=== PATIENT | female | born 1975 | race Caucasian/White ===

== ENCOUNTER 2018-06-06 20:54 | Emergency (ER) | payer SELFPAY ==
--- OUTSIDE RECORDS SUMMARY | 2018-06-06 20:56 | XMS REPORT | Clinical Summary ---
Author Author [facility] Address Unknown Phone Unavailable Care Team Providers Care Automobile Repossessor Name Role Phone Larissa Daniel MD PCP Allergies Comments Active Allergy Reactions Severity Noted Date Codeine Itching 05/30/2017 Medications End Date Status Medication Sig Dispensed Refills Start Date Active ramipril (ALTACE) 10 MG Take 20 mg by 0 capsule mouth daily. Active cyclobenzaprine Take 0.5 20 tablet 0 (FLEXERIL) 10 mg tablet tablets (5 mg 7 total) by mouth 3 (three) times a day as needed for muscle spasms. Active ibuprofen (ADVIL,MOTRIN) Take 1 tablet 20 tablet 0 600 MG tablet (600 mg 7 total) by mouth every 6 (six) hours as needed for mild pain. Active amitriptyline (ELAVIL) 25 Take 25 mg by 0 MG tablet mouth 7 nightly. Active sertraline (ZOLOFT) 100 Take 200 mg 1 201 MG tablet by mouth 7 daily. Active lisinopril Take 10 mg by 1 (PRINIVIL,ZESTRIL) 10 mg mouth daily. 7 tablet 06/16/2018 Active gabapentin (NEURONTIN) Take 1 90 capsule 0 300 mg capsule capsule (300 8 mg total) by mouth 3 (three) times a day for 30 days. 07/06/2018 Active naproxen (NAPROSYN) 500 Take 1 tablet 30 tablet 0 MG tablet (500 mg 8 total) by mouth 2 (two) times a day as needed for mild pain or moderate pain for up to 30 days. 07/02/2017 Discontinued gabapentin (NEURONTIN) TAKE ONE 8 400 mg capsule CAPSULE BY 7 MOUTH 4 TIMES A DAY 07/17/2017 gabapentin (NEURONTIN) Take 1 60 capsule 0 400 mg capsule capsule (400 8 mg total) by mouth 4 (four) times a day for 15 days. 08/15/2017 gabapentin (NEURONTIN) Take 1 45 capsule 0 300 mg capsule capsule (300 8 mg total) by mouth 3 (three) times a day for 15 days. 10/25/2017 gabapentin (NEURONTIN) Take 1 28 capsule 0 400 mg capsule capsule (400 8 mg total) by mouth 4 (four) times a day for 7 days. 12/14/2017 naproxen (NAPROSYN) 500 Take 1 tablet 20 tablet 0 MG tablet (500 mg 8 total) by mouth 2 (two) times a day with meals for 10 days. 12/11/2017 traMADol (ULTRAM) 50 mg Take 1 tablet 15 tablet 0 tablet (50 mg total) 8 by mouth every 6 (six) hours as needed for severe pain for up to 15 doses. 05/17/2018 Discontinued gabapentin (NEURONTIN) Take 300 mg 0 300 mg capsule by mouth 4 (four) times a day. Active Problems Not on file Encounters Care Team Description Date Type Specialty Jasvir Arita MD Contusion of right knee, initial encounter (Primary Dx) 06/06/2018 Emergency Emergency Medicine Armin Ascencio, DO Neuropathy (Primary Dx); Medication refill 05/17/2018 Emergency Emergency Medicine Armin Ascencio, DO Acute pain of right knee (Primary Dx); Effusion of right knee 12/04/2017 Emergency Emergency Medicine Armin Ascencio, Encounter for medication refill (Primary Dx) 10/18/2017 Emergency Emergency Medicine Armin Ascencio, DO Neuropathy (Primary Dx) 07/31/2017 Emergency Emergency Medicine Armin Ascencio, DO Medication refill (Primary Dx) 07/02/2017 Emergency Emergency Medicine Jb Nelson MD Neck pain (Primary Dx); Essential hypertension 06/09/2017 Emergency Emergency Medicine after 06/05/2017 Social History Date Tobacco Use Types Packs/Day Years Used Current Every Day Smoker 1 20 Smokeless Tobacco: Never Used Tobacco Cessation: Ready to Quit: Yes; Counseling Given: Yes Alcohol Use Drinks/Week oz/Week Comments No Sex Assigned at Date Recorded Not on file Industry Job Start Date Occupation Not on file Not on file Not on file Travel End Travel History Travel Start No recent travel history available. Last Filed Vital Signs Time Taken Vital Sign Reading 06/06/2018 6:19 PM MEDIA REPORTER Blood Pressure 139/87 06/06/2018 6:19 PM MEDIA REPORTER Pulse 84 06/06/2018 6:19 PM MEDIA REPORTER Temperature 37.1 C (98.8 F) 06/06/2018 6:19 PM MEDIA REPORTER Respiratory Rate 16 06/06/2018 6:19 PM MEDIA REPORTER Oxygen Saturation 98% - Inhaled Oxygen - Concentration 06/06/2018 6:16 PM MEDIA REPORTER Weight 72.6 kg (160 lb) 06/06/2018 6:16 PM MEDIA REPORTER Height 167.6 cm (5' 6") 06/06/2018 6:16 PM MEDIA REPORTER Body Mass Index 25.82 Plan of Treatment Health Maintenance Due Date Last Done Comments CERVICAL CANCER SCREENING 1998 INFLUENZA VACCINE 01/09/2018 Procedures Comments Procedure Name Priority Date/Time Associated Diagnosis XR KNEE 4+ VW RIGHT STAT 06/06/2018 7:10 PM MEDIA REPORTER XR KNEE 4+ VW RIGHT STAT 12/04/2017 3:58 PM CDT HCG QUALITATIVE, URINE Routine 07/02/2017 SCREEN 5:27 PM MEDIA REPORTER [place] INJECT TRIGGER POINT, Routine 06/11/2017 1 OR 2 6:44 PM MEDIA REPORTER after 06/05/2017 Results * XR Knee 4+ Vw Right (06/06/2018 7:10 PM MEDIA REPORTER) Only the most recent of 2 results within the time period is included. Narrative Performed At PROCEDURE:XR KNEE 4VW RIGHT [facility] CLINICAL HISTORY:table fell on r knee COMPARISON:None. TECHNIQUE: Right knee,THREE views were obtained. FINDINGS: No fracture, dislocation, bone destruction, or periosteal reaction is demonstrated of the bones about the knee. There is a bony density seen adjacent to the patella which may represent an unfused ossification center versus prior trauma. If the patient's symptoms persist or deteriorate, a follow-up radiograph in 10 days time is recommended, if clinically indicated. IMPRESSION: 1. No acute fracture or subluxation. [facility]-[id number] Procedure Note Interface, Radiology Results Incoming - 06/06/2018 7:16 PM MEDIA REPORTER PROCEDURE: XR KNEE 4 VW RIGHT CLINICAL HISTORY: table fell on r knee COMPARISON: None. TECHNIQUE: Right knee, THREE views were obtained. FINDINGS: No fracture, dislocation, bone destruction, or periosteal reaction is demonstrated of the bones about the knee. There is a bony density seen adjacent to the patella which may represent an unfused ossification center versus prior trauma. If the patient's symptoms persist or deteriorate, a follow-up radiograph in 10 days time is recommended, if clinically indicated. IMPRESSION: 1. No acute fracture or subluxation. [facility]-[id number] Performing Organization Address City/State/Zipcode Phone Number [facility] [address] [place] [address] * hCG qualitative, urine screen (07/02/2017 5:27 PM MEDIA REPORTER) hCG qualitative, urine Negative Negative [facility] Comment: PATHOLOGY AND The manufacturers stated GENOMIC MEDICINE sensitivity of HcG test for serum is >/=10 mIU/ml and urine is >/=20mIU/ml. Specimen Urine Performing Organization Address City/State/Zipcode Phone Number [facility] [address] [place] [address] PATHOLOGY AND GENOMIC MEDICINE * DIGITAL BLOCK (06/11/2017 6:44 PM MEDIA REPORTER) Narrative Performed At Michele Nelson MD 06/11/20176:44 PM Digital Block/Trigger Injections Performed by: MICHELE NELSON Authorized by: MICHELE NELSON Consent: Consent obtained:Verbal Consent given by:Patient Risks discussed:Infection, pain, nerve damage, swelling, intravascular injection and bleeding Location: Therapuetic Trigger Point Injection:1 Block location: left paraspinal. Pre-procedure details: Neurovascular status: intact Skin preparation:Alcohol Procedure details (see MAR for exact dosages): Syringe type:Luer lock syringe Needle gauge:25 G Anesthetic injected:Lidocaine 1% w/o epi Technique:Three-sided block Injection procedure:Incremental injection, negative aspiration for blood, anatomic landmarks palpated, introduced needle and anatomic landmarks identified Post-procedure details: Outcome:Pain improved Patient tolerance of procedure:Tolerated well, no immediate complications after 06/05/2017 Advance Directives Patient has advance care planning documents on file. For more information, [facility] [place] contact: Sami Sebastian [address] [place] [address]
--- OUTSIDE RECORDS SUMMARY | 2018-06-06 20:56 | XMS REPORT | Continuity of Care Document ---
Author Author Naomy tammie [facility] Address Unknown Phone Unavailable Problems Problem Status Onset Date Classification Date Reported Comments Source Discharge Diagnosis: Cellulitis of right thumb 10/27/2016 10/30/2016 [facility] SWOLLEN THUMB, OTHER Active 10/27/2016 [facility] Discharge Diagnosis: Mouth pain 10/19/2016 10/22/2016 [facility] SENT: REACTION TO MEDICATION Active 10/19/2016 [facility] Hypercholesteremia Resolved Problem 04/27/2017 [facility] Hypertension Resolved Problem 04/27/2017 [facility] Depression Resolved Problem 04/27/2017 [facility] Obesity Active Problem 04/27/2017 [facility] Medications Medication Details Route Status Patient Instructions Ordering Provider Order Date Source tramadol hydrochloride 50 MG Oral Tablet 50 mg=1 tab, PO, Q6H, PRN Pain, X 5 day, # 20 tab, 0 Refill(s) Active 10/27/2016 [facility] Cephalexin 500 MG Oral Capsule [Keflex] 500 mg=1 cap, PO, QID, X 10 day, # 40 cap, 0 Refill(s) Active 10/27/2016 [facility] Sulfamethoxazole 800 MG / Trimethoprim 160 MG Oral Tablet [Bactrim] 1 tab, PO, BID, X 10 day, # 20 tab, 0 Refill(s) Active 10/27/2016 [facility] Acetaminophen 325 MG / Hydrocodone Bitartrate 5 MG Oral Tablet [[place] 5/325] 1 tab, Route: PO, Drug Form: TAB, Dosing Weight 81.818, kg, ONCE, STAT, Start date: 10/27/16 14:31:00 CDT, Stop date: 10/27/16 14:31:00 CDTNotes: (Same as: [place] 325/5) Do not exceed 4gm/day of acetaminophen. Inactive 10/27/2016 [facility] Motrin 800 mg, 1 tab, Route: PO, Drug form: TAB, ONCE, Dosing Weight 81.818, kg, Priority: STAT, Start date: 10/27/16 14:31:00 CDT, Stop date: 10/27/16 14:31:00 CDTNotes: (Same as: Motrin) "Do Not Crush" Take with food. Inactive 10/27/2016 [facility] tramadol hydrochloride 50 MG Oral Tablet 50 mg=1 tab, PO, Q6H, PRN Pain, X 3 day, # 12 tab, 0 Refill(s) Active 10/19/2016 [facility] Sodium Chloride 0.154 MEQ/ML Injectable Solution 1,000 mL, 1000 ml/hr, Infuse Over: 1 hr, Route: IV, 1,000, Drug form: INJ, ONCE, Priority: STAT, Dosing Weight 81.534 kg, Start date: 10/19/16 11:39:00 CDT, Duration: 1 doses or times, Stop date: 10/19/16 11:39:00 CDT Inactive 10/19/2016 [facility] Ketorolac 15 mg, 0.5 mL, Route: IVP, Drug form: INJ, ONCE, Dosing Weight 81.534, kg, Priority: STAT, Start date: 10/19/16 11:38:00 CDT, Stop date: 10/19/16 11:38:00 CDTNotes: (Same as:Toradol) IV bolus must be given >15 seconds. Give IM administration slowly and deeply into the muscle. Not for use > 4 days MEDICATION WASTE Product Size: 30 mg Product Wasted: ___ mg Inactive 10/19/2016 [facility] Dexamethasone 10 mg, 1 mL, Route: IVP, Drug form: SOLN, ONCE, Dosing Weight 81.534, kg, Priority: STAT, Start date: 10/19/16 11:38:00 CDT, Stop date: 10/19/16 11:38:00 CDTNotes: dexamethasone 10 mg/1 ml VL INJ PF MEDICATION WASTE Product Size: 10 mg Product Wasted: ___ mg Inactive 10/19/2016 [facility] Benadryl 50 mg, 1 mL, Route: IVP, Drug form: INJ, ONCE, Dosing Weight 81.534, kg, Priority: STAT, Start date: 10/19/16 11:38:00 CDT, Stop date: 10/19/16 11:38:00 CDTNotes: (Same as: Benadryl) Inactive 10/19/2016 [facility] Allergies, Adverse Reactions, Alerts Substance Category Reaction Severity Reaction type Status Date Reported Comments Source Codeine Sulfate Assertion Drug allergy Active Medical [facility] Immunizations Immunization Date Given Site Status Last Updated Comments Source influenza virus vaccine, inactivated 03/08/2017 Right Deltoid completed Phan [facility] influenza virus vaccine, inactivated<sup>2</sup> 08/16/2016 Left Deltoid completed Chance Result Comment: [facility] #[id number], LOT #[id number], EXP. 12/08/2016 [facility] influenza virus vaccine, inactivated<sup>1</sup> 08/16/2016 Left Deltoid completed Chance Result Comment: [facility] #[id number], LOT #[id number], EXP. 12/08/2016 [facility] diphtheria/pertussis, acel/tetanus adult<sup>1</sup> 08/16/2016 Right Deltoid completed Chance Result Comment: [facility] #[id number], LOT #[id number], EXP. 10/19/2018 [facility] diphtheria/pertussis, acel/tetanus adult<sup>2</sup> 08/16/2016 Right Deltoid completed Chance Result Comment: [facility] #[id number], LOT #[id number], EXP. 10/19/2018 [facility] Results Order Name Results Value Reference Range Date Interpretation Comments Source Hand 3 views DX Hand 3 views DX Right Hand Clinical Indication: - thumb pain/redness Comparison: None FINDINGS: The AP, oblique, and lateral views of the hand show normal alignment without fractures or dislocations. The digit and thumb interphalangeal joints are unremarkable. The metacarpophalangeal joints are unremarkable. The carpometacarpal joint regions are unremarkable. There is no soft tissue swelling or radiopaque foreign bodies. The visualized wrist region is grossly unremarkable. If there is further concern, recommend follow-up radiographs or bone scan for complete assessment. IMPRESSION: No fractures or dislocation of the right hand. SL: JULY 10/27/2016 - - Read by: Glenn Del Toro MD Dictated Date/time: 10/27/16 15:05 Electronically Signed by: Glenn Del Toro MD 10/27/16 15:07 FINAL REPORT [facility] ELECTROLYTES AGAP 13.2 meq/L 10.0 - 20.0 10/19/2016 [facility] ELECTROLYTES eGFR 104 mL/min/1.73m2 10/19/2016 Result Comment: The eGFR is calculated using the CKD-EPI formula. In most young, healthy individuals the eGFR will be >90 mL/min/1.73m2. The eGFR declines with age. An eGFR of 60-89 may be normal in some populations, particularly the elderly, for whom the CKD-EPI formula has not been extensively validated. Use of the eGFR is not recommended in the following populations: Individuals with unstable creatinine concentrations, including patients and those with serious co-morbid conditions. Patients with extremes in muscle mass or diet. The data above are obtained from the National Kidney Disease Education Program (NKDEP) which additionally recommends that when the eGFR is used in patients with extremes of body mass index for purposes of drug dosing, the eGFR should be multiplied by the estimated BMI. [facility] ELECTROLYTES Creatinine Lvl 0.73 mg/dL 0.50 - 1.40 10/19/2016 [facility] ELECTROLYTES Sodium Lvl 140 meq/L 135 - 145 10/19/2016 [facility] ELECTROLYTES Glucose Lvl 88 mg/dL 70 - 99 10/19/2016 [facility] ELECTROLYTES BUN 8 mg/dL 7 - 22 10/19/2016 [facility] ELECTROLYTES Calcium Lvl 9.1 mg/dL 8.5 - 10.5 10/19/2016 [facility] ELECTROLYTES CO2 25 meq/L 24 - 32 10/19/2016 [facility] ELECTROLYTES Chloride Lvl 106 meq/L 95 - 109 10/19/2016 [facility] ELECTROLYTES Potassium Lvl 4.2 meq/L 3.5 - 5.1 10/19/2016 [facility] HEMATOLOGY Segs-Bands # 6.9 K/CMM 1.5 - 8.1 10/19/2016 [facility] HEMATOLOGY Eosinophils # 0.1 K/CMM 0.0 - 0.5 10/19/2016 [facility] HEMATOLOGY Basophils # 0.1 K/CMM 0.0 - 0.2 10/19/2016 [facility] HEMATOLOGY Lymphocytes # 2.5 K/CMM 1.0 - 5.5 10/19/2016 [facility] HEMATOLOGY Monocytes # 0.8 K/CMM 0.0 - 0.8 10/19/2016 [facility] HEMATOLOGY Lymphocytes 24.2 % 20.0 - 40.0 10/19/2016 [facility] HEMATOLOGY Basophils 1.0 % 0.0 - 1.0 10/19/2016 [facility] HEMATOLOGY Monocytes 7.3 % 2.0 - 12.0 10/19/2016 [facility] HEMATOLOGY Eosinophils 1.0 % 0.0 - 4.0 10/19/2016 [facility] HEMATOLOGY Segs 66.5 % 45.0 - 75.0 10/19/2016 [facility] HEMATOLOGY Platelet 381 K/CMM 133 - 450 10/19/2016 [facility] HEMATOLOGY MPV 8.3 fL 7.4 - 10.4 10/19/2016 [facility] MCH 30.9 pg 27.0 - 31.0 10/19/2016 [facility] HEMATOLOGY Hct 43.6 % 36.0 - 48.0 10/19/2016 [facility] HEMATOLOGY Hgb 14.7 g/dL 12.0 - 16.0 10/19/2016 [facility] HEMATOLOGY RDW 14.7 % 11.5 - 14.5 10/19/2016 [facility] HEMATOLOGY MCHC 33.8 g/dL 32.0 - 36.0 10/19/2016 [facility] HEMATOLOGY MCV 91.3 fL 80.0 - 98.0 10/19/2016 [facility] HEMATOLOGY RBC 4.78 M/CMM 4.20 - 5.40 10/19/2016 [facility] HEMATOLOGY WBC 10.4 K/CMM 3.7 - 10.4 10/19/2016 [facility] URINE AND STOOL UA Urobilinogen <=1.0 mg/dL 0.1 - 1.0 10/19/2016 [facility] URINE AND STOOL UA WBC null 0 - 5 10/19/2016 [facility] URINE AND STOOL UA Sq Epi Few /LPF Few /LPF 10/19/2016 [facility] URINE AND STOOL UA Mucus Few /LPF None Seen /LPF 10/19/2016 [facility] URINE AND STOOL UA RBC 1 /HPF 0 - 2 10/19/2016 [place] URINE AND STOOL UA Bacteria Occasional /HPF None Seen /HPF 10/19/2016 [place] URINE AND STOOL UA Leuk Est Negative (10/19/16 11:07 AM) Negative 10/19/2016 [place] URINE AND STOOL UA Nitrite Negative (10/19/16 11:07 AM) Negative 10/19/2016 [place] URINE AND STOOL UA Bili Negative *NA* (10/19/16 11:07 AM) Negative 10/19/2016 [place] URINE AND STOOL UA Blood Negative (10/19/16 11:07 AM) Negative 10/19/2016 [place] URINE AND STOOL UA Spec Grav 1.006 <=1.030 10/19/2016 [place] URINE AND STOOL UA pH 7.5 5.0 - 8.0 10/19/2016 [place] URINE AND STOOL UA Ketones Negative mg/dL Negative mg/dL 10/19/2016 [place] URINE AND STOOL UA Protein Negative mg/dL Negative mg/dL 10/19/2016 [place] URINE AND STOOL UA Glucose Negative mg/dL Negative mg/dL 10/19/2016 [place] URINE AND STOOL UA Turbidity Clear (10/19/16 11:07 AM) Clear 10/19/2016 [place] URINE AND STOOL UA Color Yellow *NA* (10/19/16 11:07 AM) Yellow 10/19/2016 [place] URINE CHEM U Preg Negative (10/19/16 11:07 AM) Negative 10/19/2016 [place] Vital Signs Vital Sign Value Date Comments Source Systolic (mm Hg) 110 10/27/2016 [place] Diastolic (mm Hg) 75 10/27/2016 [place] Respitory Rate 18 10/27/2016 [place] Heart Rate 81 10/27/2016 [place] BMI Calculated 30.02 10/27/2016 [place] Weight 81.818 10/27/2016 [place] Height 165.1 cm 10/27/2016 [place] Heart Rate 87 10/27/2016 [place] Respitory Rate 18 10/27/2016 [place] Systolic (mm Hg) 111 10/27/2016 [place] Diastolic (mm Hg) 72 10/27/2016 [facility] Systolic (mm Hg) 159 10/19/2016 [place] Diastolic (mm Hg) 97 10/19/2016 [place] Systolic (mm Hg) 158 10/19/2016 [place] Diastolic (mm Hg) 110 10/19/2016 [place] Systolic (mm Hg) 163 10/19/2016 [place] Diastolic (mm Hg) 104 10/19/2016 [place] Respitory Rate 22 10/19/2016 [place] Heart Rate 100 10/19/2016 [place] Respitory Rate 22 10/19/2016 [place] BMI Calculated 29.01 10/19/2016 [facility] Weight 81.534 10/19/2016 [place] Height 167.64 cm 10/19/2016 [facility] Encounters Location Location Details Encounter Type Encounter Number Reason For Visit Attending Provider ADM Date DC Date Status Source Outpatient [id number] SAUL LUNDBERG 08/16/2016 [facility] Outpatient [id number] JU DIAZ 08/22/2016 [facility] Outpatient [id number] SAUL LUNDBERG 10/12/2016 [facility] Outpatient [id number] SAUL LUNDBERG 10/19/2016 [facility] Emergency [id number] Ashtyn Rodrigez 10/19/2016 10/19/2016 [facility] Emergency [id number] Ashtyn Rodrigez 10/27/2016 10/27/2016 [facility] Outpatient [id number] JU DIAZ 03/07/2017 [facility] Outpatient [id number] SAUL LUNDBERG 03/08/[address] [facility] [place] 101 Phone Message [id number] 04/23/2017 04/25/2017 [facility] Procedures Procedure Code Date Perfomer Comments Source Appendectomy [id number] 06/11/2014 [facility] Gallbladder excision [id number] 06/11/2014 [facility] Appendectomy [id number] 06/11/2014 [facility] Gallbladder excision [id number] 06/11/2014 [facility] section [id number] 06/11/2007 [facility] section [id number] 06/11/2007 [facility]
--- OUTSIDE RECORDS SUMMARY | 2018-06-06 20:57 | XMS REPORT | Summary of Care ---
Author Author [facility] [place] [address] Organization [facility] [place] [address] Address Unknown Phone Unavailable Encounter HQ Syedntr_hillary(FIN) [id number] Date(s): 04/23/17 - 04/24/17 [facility] Care [place] [address] [address], [address] [place] [phone] Vital Signs No data available for this section Problem List Condition Effective Dates Status Health Status Informant Hypercholesteremia(C Resolved onfirmed) Hypertension(Confirm Resolved ed) Depression(Confirmed Resolved ) Obesity(Confirmed) Active Allergies, Adverse Reactions, Alerts Substance Reaction Severity Status Codeine Sulfate Active Medications No data available for this section Results No data available for this section Immunizations Given and Recorded Vaccine Date Status Refusal Reason influenza virus vaccine, inactivated 03/08/17 Given influenza virus vaccine, inactivated1 08/16/16 Given diphtheria/pertussis, acel/tetanus adult2 08/16/16 Given 1Result Comment: [facility] #[id number], LOT #[id number], EXP. 12/08/2016 2Result Comment: [facility] #[id number], LOT #[id number], EXP. 10/19/2018 Procedures Procedure Date Related Diagnosis Body Site Appendectomy 2015 Gallbladder excision 2014 section 2007 Social History Social History Type Response Smoking Status Former smoker; Type: Cigarettes; Lives with someone who smokes; Cigarette Smoking Last 365 Days Yes; Reg Smoking Cessation Counseling No; Tobacco use per day: 15; Assessment and Plan No data available for this section
--- OUTSIDE RECORDS SUMMARY | 2018-06-06 20:57 | XMS REPORT | Summary of Care ---
Author Author [facility] Organization [facility] Address Unknown Phone Unavailable Encounter JAMAR Correia(JASSI) [id number] Date(s): 10/19/16 - 10/19/16 [facility] [address] [place] [address]- Discharge Diagnosis: Mouth pain Discharge Disposition: Home or Self Care Attending Physician: Ashtyn Rodrigez MD Vital Signs 1 2 3 Most recent to oldest [Reference Range]: 167.64 cm (10/19/16 8:57 AM) Height 159/97 mmHg *HI* (10/19/16 12:30 PM) 158/110 mmHg *HI* (10/19/16 12:00 PM) 163/104 mmHg *HI* (10/19/16 11:30 AM) Blood Pressure [90-140/60-90 mmHg] 22 BRMIN *HI* (10/19/16 11:10 AM) 22 BRMIN *HI* (10/19/16 8:57 AM) Respiratory Rate [14-20 BRMIN] 100 bpm (10/19/16 8:57 AM) Peripheral Pulse Rate [60-100 bpm] 81.534 kg (10/19/16 8:57 AM) Weight 29.01 m2 (10/19/16 8:57 AM) Body Mass Index Problem List Condition Effective Dates Status Health Status Informant Hypercholesteremia(C Resolved onfirmed) Hypertension(Confirm Resolved ed) Depression(Confirmed Resolved ) Obesity(Confirmed) Active Allergies, Adverse Reactions, Alerts Substance Reaction Severity Status Codeine Sulfate Active Medications Benadryl 50 mg, 1 mL, Route: IVP, Drug form: INJ, ONCE, Dosing Weight 81.534, kg, Priorit y: STAT, Start date: 10/19/16 11:38:00 CDT, Stop date: 10/19/16 11:38:00 CDT Notes: (Same as: Benadryl) Start Date: 10/19/16 Stop Date: 10/19/16 Status: Completed dexamethasone 10 mg, 1 mL, Route: IVP, Drug form: SOLN, ONCE, Dosing Weight 81.534, kg, Priori ty: STAT, Start date: 10/19/16 11:38:00 CDT, Stop date: 10/19/16 11:38:00 CDT Notes: dexamethasone 10 mg/1 ml VL INJ PF MEDICATION WASTE Product Size: 10 mgProduct Wasted: ___ mg Start Date: 10/19/16 Stop Date: 10/19/16 Status: Completed ketOROLAC 15 mg, 0.5 mL, Route: IVP, Drug form: INJ, ONCE, Dosing Weight 81.534, kg, Prior ity: STAT, Start date: 10/19/16 11:38:00 CDT, Stop date: 10/19/16 11:38:00 CDT Notes: (Same as:Toradol) IV bolus must be given >15 seconds. Give IM administration slowly and deeply into the muscle.Not for use > 4 days MEDICATION WASTE Product Size: 30 mgProduct Wasted: ___ mg Start Date: 10/19/16 Stop Date: 10/19/16 Status: Completed Sodium Chloride 0.9% (Bolus) IV 1,000 mL, 1000 ml/hr, Infuse Over: 1 hr, Route: IV, 1,000, Drug form: INJ, ONCE, Priority: STAT, Dosing Weight 81.534 kg, Start date: 10/19/16 11:39:00 CDT, Dur ation: 1 doses or times, Stop date: 10/19/16 11:39:00 CDT Start Date: 10/19/16 Stop Date: 10/19/16 Status: Completed tramadol 50 mg oral tablet 50 mg=1 tab, PO, Q6H, PRN Pain, X 3 day, # 12 tab, 0 Refill(s) Start Date: 10/19/16 Stop Date: 10/22/16 Status: Ordered Results ELECTROLYTES Most recent to 1 oldest [Reference Range]: Sodium Lvl [135-145 140 mEq/L mEq/L] (10/19/1649 AM) Potassium Lvl 4.2 mEq/L [3.5-5.1 mEq/L] (10/19/16:49 AM) Chloride Lvl [95-109 106 mEq/L mEq/L] (10/19/1649 AM) CO2 [24-32 mEq/L] 25 mEq/L (10/19/1649 AM) AGAP [10.0-20.0 13.2 mEq/L mEq/L] (10/19/1649 AM) CHEM PANEL Most recent to 1 oldest [Reference Range]: Creatinine Lvl 0.73 mg/dL [0.50-1.40 mg/dL] (10/19/16:49 AM) eGFR 104 mL/min/1.73m2 1 *NA* (10/19/1649 AM) BUN [7-22 mg/dL] 8 mg/dL (10/19/1649 AM) Glucose Lvl [70-99 88 mg/dL mg/dL] (10/19/1649 AM) Calcium Lvl 9.1 mg/dL [8.5-10.5 mg/dL] (10/19/16:49 AM) 1Result Comment: The eGFR is calculated using the [...] from the National Kidney Disease Education Program ( NKDEP) which additionally recommends that when the eGFR is used in patients with extremes of body mass index for purposes of drug dosing, the eGFR should be mul tiplied by the estimated BMI. URINE CHEM Most recent to 1 oldest [Reference Range]: U Preg [Negative] Negative (10/19/16 11:07 AM) URINE AND STOOL Most recent to 1 oldest [Reference Range]: UA Turbidity [Clear] Clear (10/19/16 11:07 AM) UA Color [Yellow] Yellow *NA* (10/19/16 11:07 AM) UA pH [5.0-8.0] 7.5 (10/19/16 11:07 AM) UA Spec Grav 1.006 [<=1.030] (10/19/16 11:07 AM) UA Glucose [Negative Negative mg/dL mg/dL] *NA* (10/19/16 11:07 AM) UA Blood [Negative] Negative (10/19/16:07 AM) UA Ketones [Negative Negative mg/dL mg/dL] *NA* (10/19/16 11:07 AM) UA Protein [Negative Negative mg/dL mg/dL] (10/19/16 11:07 AM) UA Urobilinogen <=1.0 mg/dL [0.1-1.0 mg/dL] *NA* (10/19/16 11:07 AM) UA Bili [Negative] Negative *NA* (10/19/16 11:07 AM) UA Leuk Est Negative [Negative] (10/19/16:07 AM) UA Nitrite Negative [Negative] (10/19/16 11:07 AM) UA WBC [0-5 /HPF] <1 /HPF (10/19/16 11:07 AM) UA RBC [0-2 /HPF] 1 /HPF (10/19/16 11:07 AM) UA Bacteria [None Occasional /HPF Seen /HPF] *NA* (10/19/16 11:07 AM) UA Sq Epi [Few /LPF] Few /LPF *NA* (10/19/16 11:07 AM) UA Mucus [None Seen Few /LPF /LPF] *NA* (10/19/16 11:07 AM) HEMATOLOGY Most recent to 1 oldest [Reference Range]: WBC [3.7-10.4 K/CMM] 10.4 K/CMM (10/19/16 11:49 AM) RBC [4.20-5.40 4.78 M/CMM M/CMM] (10/19/16 11:49 AM) Hgb [12.0-16.0 g/dL] 14.7 g/dL (10/19/16 11:49 AM) Hct [36.0-48.0 %] 43.6 % (10/19/16 11:49 AM) MCV [80.0-98.0 fL] 91.3 fL (10/19/16 11:49 AM) MCH [27.0-31.0 pg] 30.9 pg (10/19/16 11:49 AM) MCHC [32.0-36.0 33.8 g/dL g/dL] (10/19/16 11:49 AM) RDW [11.5-14.5 %] 14.7 % *HI* (10/19/16 11:49 AM) Platelet [133-450 381 K/CMM K/CMM] (10/19/16 11:49 AM) MPV [7.4-10.4 fL] 8.3 fL (10/19/16 11:49 AM) Segs [45.0-75.0 %] 66.5 % (10/19/16 11:49 AM) Lymphocytes 24.2 % [20.0-40.0 %] (10/19/16 11:49 AM) Monocytes [2.0-12.0 7.3 % %] (10/19/16 11:49 AM) Eosinophils [0.0-4.0 1.0 % %] (10/19/16 11:49 AM) Basophils [0.0-1.0 1.0 % %] (10/19/16 11:49 AM) Segs-Bands # 6.9 K/CMM [1.5-8.1 K/CMM] (10/19/16 11:49 AM) Lymphocytes # 2.5 K/CMM [1.0-5.5 K/CMM] (10/19/16 11:49 AM) Monocytes # [0.0-0.8 0.8 K/CMM K/CMM] (10/19/16 11:49 AM) Eosinophils # 0.1 K/CMM [0.0-0.5 K/CMM] (10/19/16 11:49 AM) Basophils # [0.0-0.2 0.1 K/CMM K/CMM] (10/19/16 11:49 AM) Immunizations Given and Recorded Vaccine Date Status Refusal Reason diphtheria/pertussis, acel/tetanus adult1 08/16/16 Given influenza virus vaccine, inactivated2 08/16/16 Given 1Result Comment: [facility] #[id number], LOT #[id number], EXP. 10/19/2018 2Result Comment: [facility] #[id number], LOT #[id number], EXP. 12/08/2016 Procedures Procedure Date Related Diagnosis Body Site Appendectomy 2014 Gallbladder excision 2014 section 2007 Social History Social History Type Response Smoking Status Current every day smoker; Type: Cigarettes; Tobacco use per day: 15; Lives with someone who smokes; Cigarette Smoking Last 365 Days Yes; Reg Smoking Cessation Counseling No Assessment and Plan No data available for this section
--- OUTSIDE RECORDS SUMMARY | 2018-06-06 20:57 | XMS REPORT ---
Author Author [facility] Address Unknown Phone Unavailable Care Team Providers Care Hotel Reservationist Name Role Phone Unavailable Unavailable Payers Payer Name Policy Type Policy Number Effective Date Expiration Date Problems This patient has no known problems. Allergies, Adverse Reactions, Alerts Allergy Name Allergy Type Status Severity Reaction(s) Onset Date Inactive Date Treating Clinician Comments codeine DA Active U 2018-06-05 00:00:00 codeine DA Active U 2017-07-10 00:00:00 Medications This patient has no known medications.
--- OUTSIDE RECORDS SUMMARY | 2018-06-06 20:57 | XMS REPORT | Summary of Care ---
Author Author [facility] Organization [facility] Address Unknown Phone Unavailable Encounter JAMAR Correia(JASSI) [id number] Date(s): 10/27/16 - 10/27/16 [facility] [address] [place] [address]- Discharge Diagnosis: Cellulitis of right thumb Discharge Disposition: Home or Self Care Attending Physician: Ashtyn Rodrigez MD Vital Signs Most recent to 1 2 oldest [Reference Range]: Height 165.1 cm (10/27/16 2:27 PM) Blood Pressure 110/75 mmHg 111/72 mmHg [90-140/60-90 mmHg] (10/27/16 4:14 PM) (10/27/16 2:27 PM) Respiratory Rate 18 BRMIN 18 BRMIN [14-20 BRMIN] (10/27/16 4:14 PM) (10/27/16 2:27 PM) Peripheral Pulse 81 bpm 87 bpm Rate [60-100 bpm] (10/27/16 4:14 PM) (10/27/16 2:27 PM) Weight 81.818 kg (10/27/16 2:27 PM) Body Mass Index 30.02 m2 (10/27/16 2:27 PM) Problem List Condition Effective Dates Status Health Status Informant Hypercholesteremia(C Resolved onfirmed) Hypertension(Confirm Resolved ed) Depression(Confirmed Resolved ) Obesity(Confirmed) Active Allergies, Adverse Reactions, Alerts Substance Reaction Severity Status Codeine Sulfate Active Medications Bactrim DS 800 mg- 160 mg oral tablet 1 tab, PO, BID, X 10 day, # 20 tab, 0 Refill(s) Start Date: 10/27/16 Stop Date: 11/06/16 Status: Ordered Keflex 500 mg oral capsule 500 mg=1 cap, PO, QID, X 10 day, # 40 cap, 0 Refill(s) Start Date: 10/27/16 Stop Date: 11/06/16 Status: Ordered Motrin 800 mg, 1 tab, Route: PO, Drug form: TAB, ONCE, Dosing Weight 81.818, kg, Priori ty: STAT, Start date: 10/27/16 14:31:00 CDT, Stop date: 10/27/16 14:31:00 CDT Notes: (Same as: Motrin)"Do Not Crush" Take with food. Start Date: 10/27/16 Stop Date: 10/27/16 Status: Completed [place] 5/325 oral tablet 1 tab, Route: PO, Drug Form: TAB, Dosing Weight 81.818, kg, ONCE, STAT, Start da te: 10/27/16 14:31:00 CDT, Stop date: 10/27/16 14:31:00 CDT Notes: (Same as: [place] 325/5) Do not exceed 4gm/day of acetaminophen. Start Date: 10/27/16 Stop Date: 10/27/16 Status: Completed tramadol 50 mg oral tablet 50 mg=1 tab, PO, Q6H, PRN Pain, X 5 day, # 20 tab, 0 Refill(s) Start Date: 10/27/16 Stop Date: 11/01/16 Status: Ordered Results No data available for this section Immunizations Given and Recorded Vaccine Date Status Refusal Reason diphtheria/pertussis, acel/tetanus adult1 08/16/16 Given influenza virus vaccine, inactivated2 08/16/16 Given 1Result Comment: [facility] #[id number], LOT #[id number], EXP. 10/19/2018 2Result Comment: [facility] #[id number], LOT #[id number], EXP. 12/08/2016 Procedures Procedure Date Related Diagnosis [...]
== END 2018-06-06 22:23 | disposition left against medical advice (07) ==
LOC: ER 20:54
DX: G62.9 Polyneuropathy, unspecified (principal)

== ENCOUNTER 2018-06-09 14:50 | Emergency (ER) | payer SELFPAY ==
[~2018-06-09] VITALS: Ht 167.6 cm; Wt 73.5 kg
--- OUTSIDE RECORDS SUMMARY | 2018-06-09 14:55 | XMS REPORT | Clinical Summary ---
Author Author [facility] Address Unknown Phone Unavailable Care Team Providers Care [employer] Gold Attendant Name Role Phone Larissa Daniel MD PCP [...] Essential hypertension 06/09/2017 Emergency Emergency Medicine after 06/08/2017 Social History Date Tobacco Use Types Packs/Day [...] Taken Vital Sign Reading 06/06/2018 6:19 PM SERVICE TRAINER Blood Pressure 139/87 06/06/2018 6:19 PM SERVICE TRAINER Pulse 84 06/06/2018 6:19 PM SERVICE TRAINER Temperature 37.1 C (98.8 F) 06/06/2018 6:19 PM SERVICE TRAINER Respiratory Rate 16 06/06/2018 6:19 PM SERVICE TRAINER Oxygen Saturation 98% - Inhaled Oxygen - Concentration 06/06/2018 6:16 PM SERVICE TRAINER Weight 72.6 kg (160 lb) 06/06/2018 6:16 PM SERVICE TRAINER Height 167.6 cm (5' 6") 06/06/2018 6:16 PM SERVICE TRAINER Body Mass Index 25.82 Plan of Treatment Health Maintenance Due Date Last Done Comments CERVICAL CANCER SCREENING 1998 INFLUENZA VACCINE 01/09/2018 Procedures Comments Procedure Name Priority Date/Time Associated Diagnosis XR KNEE 4+ VW RIGHT STAT 06/06/2018 7:10 PM SERVICE TRAINER XR KNEE 4+ VW RIGHT STAT 12/04/2017 3:58 PM CDT HCG QUALITATIVE, URINE Routine 07/02/2017 SCREEN 5:27 PM SERVICE TRAINER RI INJECT TRIGGER POINT, Routine 06/11/2017 1 OR 2 6:44 PM SERVICE TRAINER after 06/08/2017 Results * XR Knee 4+ Vw Right (06/06/2018 7:10 PM SERVICE TRAINER) Only the most recent of 2 results [...] IMPRESSION: 1. No acute fracture or subluxation. [facility]-[id number] Procedure Note Interface, Radiology Results Incoming - 06/06/2018 7:16 PM SERVICE TRAINER PROCEDURE: XR KNEE 4 VW RIGHT CLINICAL [...] IMPRESSION: 1. No acute fracture or subluxation. [facility]-[id number] Performing Organization Address City/State/Zipcode Phone Number [facility] [address] [place] [address] * hCG qualitative, urine screen (07/02/2017 5:27 PM SERVICE TRAINER) hCG qualitative, urine Negative Negative [facility] DEPARTMENT OF Comment: PATHOLOGY AND The manufacturers stated GENOMIC MEDICINE sensitivity of HcG test for serum is >/=10 mIU/ml and urine is >/=20mIU/ml. Specimen Urine Performing Organization Address City/State/Zipcode Phone Number [facility] DEPARTMENT OF [address] [place] [address] PATHOLOGY AND GENOMIC MEDICINE * DIGITAL BLOCK (06/11/2017 6:44 PM SERVICE TRAINER) Narrative Performed At Michele Nelson MD 06/11/20176:44 [...] of procedure:Tolerated well, no immediate complications after 06/08/2017 Advance Directives Patient has advance care planning documents on file. For more information, [place] contact: Sami Sebastian [address] [place] [address]
== END 2018-06-09 16:42 | disposition home or self-care (01) ==
LOC: ER 14:50
DX: Z76.0 Encounter for issue of repeat prescription (principal); I10 Essential (primary) hypertension
CPT/HCPCS: 99282

== ENCOUNTER 2018-10-14 10:24 | Emergency (ER) | payer SELFPAY ==
[~2018-10-14] VITALS: Ht 167.6 cm; Wt 73.5 kg
--- OUTSIDE RECORDS SUMMARY | 2018-10-14 10:26 | XMS REPORT | Clinical Summary ---
Author Author [facility] Address Unknown Phone Unavailable Care Team Providers Care Supervisor Corduroy Cutting Name Role Phone Larissa Daniel MD PCP [...] sertraline (ZOLOFT) 100 Take 200 mg 1 MG tablet by mouth 7 daily. Active lisinopril Take 10 mg by 1 (PRINIVIL,ZESTRIL) 10 mg mouth daily. 7 tablet 10/29/2018 Active albuterol (PROAIR Inhale 1-2 1 Inhaler 0 HFA,PROVENTIL puffs every 6 9 HFA,VENTOLIN HFA) 90 (six) hours mcg/actuation inhaler as needed for wheezing for up to 30 days. 10/29/2018 Active gabapentin (NEURONTIN) Take 1 90 capsule 0 300 mg capsule capsule (300 9 mg total) by mouth 3 (three) times a day for 30 days. 10/25/2017 gabapentin (NEURONTIN) Take 1 28 [...] by mouth 4 (four) times a day. 06/16/2018 gabapentin (NEURONTIN) Take 1 90 capsule 0 300 mg capsule capsule (300 8 mg total) by mouth 3 (three) times a day for 30 days. 07/06/2018 naproxen (NAPROSYN) 500 Take 1 tablet 30 tablet 0 MG tablet (500 mg 8 total) by mouth 2 (two) times a day as needed for mild pain or moderate pain for up to 30 days. 10/03/2018 azithromycin (ZITHROMAX) Take first 2 6 tablet 0 250 MG tablet tablets 9 together, then 1 every day until finished. 2018 predniSONE (DELTASONE) 50 Take 1 tablet 3 tablet 0 mg tablet (50 mg total) 9 by mouth daily for 3 days. Active Problems Not on file Encounters Care Team Description Date [facility]chitis with bronchospasm (Primary Dx); Medication refill 09/29/2018 Emergency Emergency Medicine Jasvir Arita MD Contusion of right knee, initial encounter (Primary Dx) 06/06/2018 Emergency Emergency Medicine Armin Ascencio, DO Neuropathy (Primary Dx); Medication refill 05/17/2018 Emergency Emergency Medicine Armin Ascencio, DO Acute pain of right knee (Primary Dx); Effusion of right knee 12/04/2017 Emergency Emergency Medicine Armin Ascencio, DO Encounter for medication refill (Primary Dx) 10/18/2017 Emergency Emergency Medicine after 10/13/2017 Social History Date Tobacco Use Types Packs/Day [...] Vital Signs Time Taken Vital Sign Reading 09/29/2018 10:56 AM CDT Blood Pressure 120/81 09/29/2018 10:56 AM CDT Pulse 79 09/29/2018 10:56 AM CDT Temperature 36.3 C (97.4 F) 09/29/2018 10:56 AM CDT Respiratory Rate 18 09/29/2018 10:56 AM CDT Oxygen Saturation 97% - Inhaled Oxygen - Concentration 06/06/2018 6:16 PM CLIENT RELATIONSHIP CONSULTANT Weight 72.6 kg (160 lb) 09/29/2018 9:34 AM CDT Height 167.6 cm (5' 6") 06/06/2018 6:16 PM CLIENT RELATIONSHIP CONSULTANT Body Mass Index 25.82 Plan of Treatment Health Maintenance Due Date Last Done Comments CERVICAL CANCER SCREENING 1998 INFLUENZA VACCINE 01/09/2019 Procedures Comments Procedure Name Priority Date/Time Associated Diagnosis XR CHEST 2 VW STAT 09/29/2018 10:00 AM CDT ECG ED PRELIMINARY Routine 09/29/2018 INTERPRETATION 9:43 AM CDT ECG 12-LEAD STAT 09/29/2018 9:40 AM CDT XR KNEE 4+ VW RIGHT STAT 06/06/2018 7:10 PM CLIENT RELATIONSHIP CONSULTANT XR KNEE 4+ VW RIGHT STAT 12/04/2017 3:58 PM CDT after 10/13/2017 Results * XR Chest 2 Vw (09/29/2018 10:00 AM CDT) Narrative Performed At EXAMINATION:XR CHEST 2 VW HM [facility] CLINICAL HISTORY:cough COMPARISON:None IMPRESSION: PA and lateral radiographs of the chest are reviewed. The heart size is normal. Lungs are clear. There is no pleural effusion or pneumothorax. There is no acute osseous abnormality. [id number] Procedure Note Hm Interface, Radiology Results Incoming - 09/29/2018 10:06 AM CDT EXAMINATION: XR CHEST 2 VW CLINICAL HISTORY: cough COMPARISON: None IMPRESSION: PA and lateral radiographs of the chest are reviewed. The heart size is normal. Lungs are clear. There is no pleural effusion or pneumothorax. There is no acute osseous abnormality. [id number] Performing Organization Address [facility]/Zipcode Phone Number [facility] [address] [place] [address] * ECG ED Preliminary Interpretation - Not an Order (09/29/2018 9:43 AM CDT) Narrative Performed At Erick Walton MD 09/30/2018 12:25 PM ECG ED Preliminary Interpretation - Not an Order Performed by: Erick Walton MD Authorized by: Erick Walton MD ECG reviewed by ED Physician in the absence of a part time flexible clerk: yes Interpretation: Interpretation: normal Rate: ECG rate:83 ECG rate assessment: normal Rhythm: Rhythm: sinus rhythm Ectopy: Ectopy: none QRS: QRS axis:Normal QRS intervals:Normal Conduction: Conduction: normal ST segments: ST segments:Normal T waves: T waves: normal * ECG 12 lead (09/29/2018 9:40 AM CDT) Ventricular rate 83 [facility] Atrial rate 83 [facility] KS interval 152 [facility] QRSD interval 96 [facility] QT interval 388 [facility] QTC interval 455 [facility] P axis 1 49 [facility] QRS axis 1 -2 [facility] T wave axis 25 [facility] EKG impression Normal sinus rhythm-Normal [facility] ECG-In automated comparison with ECG of 30-MAY-2017 13:04,-No significant change was found- Narrative Performed At Performing Organization Address [facility] Phone Number [facility] [address] [place] [address] * XR Knee 4+ Vw Right (06/06/2018 7:10 PM CLIENT RELATIONSHIP CONSULTANT) Only the most recent of 2 results within the time period is included. Narrative Performed At PROCEDURE:XR KNEE 4VW RIGHT [facility] CLINICAL HISTORY:table fell on r knee [...] IMPRESSION: 1. No acute fracture or subluxation. [facility]-[id number] Procedure Note Interface, Radiology Results Incoming - 06/06/2018 7:16 PM CLIENT RELATIONSHIP CONSULTANT PROCEDURE: XR KNEE 4 VW RIGHT CLINICAL [...] IMPRESSION: 1. No acute fracture or subluxation. [facility]-[id number] Performing Organization Address City/State/Zipcode Phone Number [facility] [address] [place] [address] after 10/13/2017 Advance Directives Patient has advance care planning documents on file. For more information, robson e contact: Sami Sebastian [address] [place] [address]
== END 2018-10-14 11:13 | disposition home or self-care (01) ==
LOC: ER 10:24
DX: G62.9 Polyneuropathy, unspecified (principal); I10 Essential (primary) hypertension; M54.9 Dorsalgia, unspecified; G89.29 Other chronic pain
CPT/HCPCS: 99282